=== PATIENT | male | born 1955 | race Caucasian/White ===

== ENCOUNTER 2021-04-20 17:34 | Emergency (ER) | payer BC, OTHER ==
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
[2021-04-20 17:50] VITALS: BP 110/87; PULSE 60; O2SAT 96
== END 2021-04-20 19:09 | disposition home or self-care (01) ==
LOC: ED 17:34
DX: F10.129 Alcohol abuse with intoxication, unspecified (principal); Z02.89 Encounter for other administrative examinations; M25.562 Pain in left knee; V47.0XXA Car driver injured in collision with fixed or stationary object in nontraffic accident, initial encounter; Y93.9 Activity, unspecified; Y92.9 Unspecified place or not applicable
CPT/HCPCS: 36415; 99283; G0480; 80307